=== PATIENT | male | born 1995 | race Caucasian/White ===

== ENCOUNTER 2020-07-27 15:15 | Emergency (ER) | payer OTHER ==
[2020-07-27 15:28] VITALS: O2SAT 96
--- NOTE | 2020-07-27 16:01 | ERPHSYRPT ---
- History of Present Illness Source: patient Exam Limitations: no limitations Patient Subjective Stated Complaint: Pt states began having swelling and right facial pain on 07/25/20. Denies fever, drainage, ear pain. States pain is starting to radiate to right yazidism. Triage Nursing Assessment: Swelling noted to right face. Possible broken tooth in right upper jaw. Physician History: 24 yo wm w R facial edema x 1 day. Pt states no dental pain at present but has a h/o a broken tooth. Pt states facial pain 11/08. He denies fever/trauma. Timing/Duration: yesterday Severity: mild ENT Location: facial Prearrival Treatment: no prearrival treatment Modifying Factors: Improves With: nothing Associated Symptoms: denies symptoms Allergies/Adverse Reactions: amoxicillin Allergy (Verified 07/27/20 15:30) Penicillins Allergy (Verified 07/27/20 15:30) Hx Tetanus, Diphtheria Vaccination/Date Given: Yes (2014) Hx Influenza Vaccination/Date Given: No Hx Pneumococcal Vaccination/Date Given: No Travel Risk - International Travel Have you traveled outside of the country in past 3 weeks: No - Coronavirus Screening Are you exhibiting any of the following symptoms?: No Close contact with a COVID-19 positive Pt in past 14-21 Days: No - Review of Systems Constitutional: No Symptoms Eyes: No Symptoms Ears, Nose, & Throat: No Ear Pain, No Ear Discharge, No Hearing Changes, No Tinnitus, No Nose Pain, No Nose Congestion, No Nose Discharge, No Epistaxis, No Mouth Pain, No Mouth Swelling, No Loose Teeth, No Throat Pain, No Throat Swelling, No Hoarse, No Painful Swallowing, No Snoring Respiratory: No Symptoms Cardiac: No Symptoms Abdominal/Gastrointestinal: No Symptoms Genitourinary Symptoms: No Symptoms Musculoskeletal: No Symptoms Skin: No Symptoms Neurological: No Symptoms Psychological: No Symptoms Endocrine: No Symptoms Hematologic/Lymphatic: No Symptoms Immunological/Allergic: No Symptoms - Past Medical History Pertinent Past Medical History: Yes Respiratory History: Asthma - Past Surgical History Musculoskeletal: Orthopedic Surgery Other Surgical History: shoulder - Social History Smoking Status: Current some day smoker Exposure to second hand smoke: Yes Drug Use: marijuana Patient Lives Alone: Yes Significant Family History: no pertinent family hx - Nursing Vital Signs Nursing Vital Signs: Initial Vital Signs Temperature 98.0 F 07/27/20 15:23 Pulse Rate 114 H 07/27/20 15:23 Respiratory Rate 14 07/27/20 15:23 Blood Pressure 133/96 07/27/20 15:23 O2 Sat by Pulse Oximetry 96 07/27/20 15:23 Pain Scale Pain Intensity 3 - Physical Exam General Appearance: no apparent distress Eye Exam: bilateral eye: normal inspection, PERRL, EOMI Ear Exam: bilateral ear: auricle normal, canal normal, TM normal Nasal Exam: normal inspection, No active bleeding Throat Exam: pharynx normal, mandibular swelling, maxillary swelling, moist mucus membranes, No dental tenderness, No excessive drooling, No foreign body, No pharynx swelling, No pharynx tenderness, No tongue swollen, No tonsillar exudate Neck Exam: normal inspection, non-tender, supple, full range of motion, trachea midline, No JVD, No Brudzinski's sign Cardiovascular/Respiratory Exam: normal breath sounds, regular rate/rhythm, heart sounds normal Abdominal Exam: non-tender Neurologic Exam: alert, oriented x 3, cooperative, manager sign II-XII nml as tested, normal mood/affect, nml cerebellar function, nml station & gait, sensation nml, No motor deficits, No sensory deficit Skin Exam: normal color, warm, dry, No rash SpO2 Interpretation: normal SpO2: 96 O2 Delivery: Room Air - Course Nursing assessment & vital signs reviewed: Yes - Progress Progress Note: 07/27/20 15:59 Pt most likely has an occult dental abscess, so will treat w clindamycin. Pt refuses pain meds. Counseled pt/family regarding: need for follow-up - Departure Departure Disposition: Home Clinical Impression: Dental abscess Condition: Stable Critical Care Time: No Referrals: GRACE HAYES MD [Primary Care Provider] - Instructions: Tooth Abscess (DC) Additional Instructions: Start Clindamycin carly Follow up with dentist in AM Return to ER for increased swelling/pain/temperature greater than 100.5 Prescriptions: Clindamycin HCl 300 mg PO TID #21 capsule
[2020-07-27 16:08] VITALS: BP 123/86; PULSE 90
== END 2020-07-27 16:08 | disposition home or self-care (01) ==
LOC: ED 15:15
DX: K04.7 Periapical abscess without sinus (principal)
CPT/HCPCS: 99283

== ENCOUNTER 2023-03-03 10:53 | Emergency (ER) | payer OTHER ==
[2023-03-03] MEDS ORDERED: XYLOCAINE 1%/Epi 1:100000 MDV 20 ML ONE (11:03)
[2023-03-03 11:07] VITALS: RESP 20; O2SAT 98
--- NOTE | 2023-03-03 11:18 | ERPHSYRPT ---
- History of Present Illness Time Seen by Provider: 03/03/23 11:00 Source: patient Exam Limitations: no limitations Patient Subjective Stated Complaint: Pt states "I was framing and a framing nail went into my hand." Triage Nursing Assessment: Pt presented alert and oriented x 3, skin pwd. Pt right lateral hand between first and second digit has openin where nail went into hand. no active extermal bleeding noted. 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 His tetanus status is up-to-date. Occurred: just prior to arrival Method of Injury: direct blow Severity of Pain-Max: moderate Severity of Pain-Current: moderate Extremities Pain Location: hand: right (Swollen thenar eminence with less than 1 cm superficial laceration present) Modifying Factors: Improves With: movement Associated Symptoms: none Allergies/Adverse Reactions: amoxicillin Allergy (Verified 07/27/20 15:30) Penicillins Allergy (Verified 07/27/20 15:30) Hx Tetanus, Diphtheria Vaccination/Date Given: Yes (2014) Hx Influenza Vaccination/Date Given: No Hx Pneumococcal Vaccination/Date Given: No Immunizations Up to Date: Yes Travel Risk - International Travel Have you traveled outside of the country in past 3 weeks: No - Coronavirus Screening Are you exhibiting any of the following symptoms?: No Close contact with a COVID-19 positive Pt in past 14-21 Days: No - Vaccine Status Have you recieved a Covid-19 vaccination: No - Review of Systems Constitutional: No Symptoms Eyes: No Symptoms Ears, Nose, & Throat: No Symptoms Respiratory: No Symptoms Cardiac: No Symptoms Abdominal/Gastrointestinal: No Symptoms Genitourinary Symptoms: No Symptoms Musculoskeletal: Injury (right hand palmar aspect) Skin: Other (right hand palmar aspect) Neurological: No Symptoms Psychological: No Symptoms Endocrine: No Symptoms Hematologic/Lymphatic: No Symptoms Immunological/Allergic: No Symptoms All Other Systems: Reviewed and Negative - Past Medical History Pertinent Past Medical History: Yes Neurological History: No Pertinent History ENT History: No Pertinent History Cardiac History: No Pertinent History Respiratory History: Asthma Endocrine Medical History: No Pertinent History Musculoskeletal History: No Pertinent History GI Medical History: No Pertinent History History: No Pertinent History Psycho-Social History: No Pertinent History Male Reproductive Disorders: No Pertinent History - Past Surgical History Past Surgical History: Yes Musculoskeletal: Orthopedic Surgery Other Surgical History: shoulder - Social History Smoking Status: Current some day smoker Exposure to second hand smoke: Yes Drug Use: marijuana Patient Lives Alone: Yes Significant Family History: no pertinent family hx - Nursing Vital Signs Nursing Vital Signs: Initial Vital Signs Temperature 97.1 F 03/03/23 10:58 Pulse Rate 72 03/03/23 10:58 Respiratory Rate 20 03/03/23 10:58 Blood Pressure 137/80 03/03/23 10:58 O2 Sat by Pulse Oximetry 98 03/03/23 10:58 Pain Scale Pain Intensity 4 - Physical Exam SpO2: 98 - Course Nursing assessment & vital signs reviewed: Yes Ordered Tests: Active Orders 24 hr Category Date Time Status Dangelo Bandage Application -[facility] [place] STAT Care 03/03/23 11:40 Active Wound Care STAT Care 03/03/23 11:33 Active HAND (MINIMUM 3 VIEWS) Stat Exams 03/03/23 11:05 Completed Medication Summary Discontinued Medications Generic Name Dose Route Start Last Admin Trade Name Jac PRN Reason Stop Dose Admin Lidocaine/Epinephrine Confirm 03/03/23 11:03 Lidocaine Hcl/Epinephrine 1% 20 Ml Administered 03/03/23 11:04 Dose 10 ml .ROUTE .STK-MED ONE - Progress Progress: improved, pain not gone completely, re-examined Progress Note: 03/03/23 11:27 X-ray of right hand was interpreted by me. I do not appreciate any acute fracture or dislocation. I do not appreciate a radiopaque foreign body present. We will send the x-ray to radiology to over read. This patient's medical issue is 1 of low complexity. The level of complexity and the work-up performed is based on review of the patient's past medical history, review of the patient's medication list, review of the patient's drug allergy list, history present illness and physical findings on examination. The patient states that he has never had Keflex before. He is allergic to penicillin and amoxicillin. The work-up in this patient is an x-ray of the right hand. I do not appreciate a radiopaque foreign body. The patient's tetanus status is up-to-date. We have soaked his right hand in Hibiclens saline solution. We are also now irrigating out the supposed nail tract. The patient drove himself into the emergency department. If the impression of the radiologist is no foreign body present, we will dress the right hand and contact the hand specialist for patient to follow-up with them for further evaluation and management. Patient will have a prescription for antibiotic and pain medication mostly sent to his pharmacy. 03/03/23 12:12 Radiologist also states that he does not appreciate any acute abnormality. Radiologist also states there is no evidence of radiopaque foreign body Counseled pt/family regarding: diagnosis, need for follow-up, rad results Medical Desision Making - Diagnostic Testing Diagnostic test were ordered, analyzed, and reviewed by me: Yes Radiological Interpretation: Interpreted by me - Risk of complications The pt has a mod risk of morbidity or mortality based on: Need for prescription drug management - Departure Departure Disposition: Home Clinical Impression: Injury of right hand by nail gun Condition: Stable Critical Care Time: No Referrals: GRACE HAYES MD [Primary Care Provider] - Follow up/PCP as directed Additional Instructions: Keep the right hand elevated above the level of the heart. Wash the site daily with with soap and water. Change the dressing each day and as needed. Do not apply lotions ointments or creams to the skin site. Take your antibiotics as prescribed. Follow-up with hand surgeon at your scheduled appointment date and time. Follow-up with [facility] clinic tomorrow morning between 8 AM and 10 AM. This is a walk-in clinic. You were provided the address and phone number. We have sent the radiographic studies to the [facility]. Prescriptions: Oxycodone HCl/Acetaminophen [Percocet 5-325 mg Tablet] 1 each PO Q8H PRN PRN #6 tablet MDD 3 PRN Reason: Moderate To Severe Pain Smz/Tmp Ds Tablet [Bactrim Ds Tablet] 1 udtab PO BID #10 tablet
--- NOTE | 2023-03-03 12:05 | XRAY ---
CLINICAL HISTORY:pain, foreign object COMPARISON:None TECHNIQUE:X-ray right hand, AP and lateral views. FINDINGS: No definite fracture line or subluxation is seen. No significant soft tissue swelling is seen. No evidence of a radio-opaque foreign body seen. Normal bone density is seen. Intact visualized joint spaces. IMPRESSION: No significant abnormality was seen in the right hand. DISCLAIMER:A subtle bone abnormality or fracture may not be readily apparent on x-rays, thus clinical correlation and further imaging including follow up CT, MRI, or follow up x-rays are advised as needed Electronically Signed by: Gallo Solis MD. 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
[2023-03-03 12:12] VITALS: BP 114/69; PULSE 74; TEMP 98.2
== END 2023-03-03 12:21 | disposition home or self-care (01) ==
LOC: ED 10:53
DX: S61.431A Puncture wound without foreign body of right hand, initial encounter (principal); W29.4XXA Contact with nail gun, initial encounter; Y93.H3 Activity, building and construction; Z28.310 Unvaccinated for COVID-19; Z72.0 Tobacco use; Z79.891 Long term (current) use of opiate analgesic
CPT/HCPCS: 73130; 99283